=== PATIENT | male | born 1985 | race Caucasian/White ===

== ENCOUNTER 2016-04-07 20:11 | Emergency (ER) | payer OTHER ==
--- NOTE | 2016-04-07 22:00 | ED NURSING NOTES ---
Clinical Report - Nurses [facility] [place] [address] 04/07/2016 20:14 [id number] Triage time 20:Apr 07 2016. --20:18 Mariam Knott Triage time 20:Apr 07 2016. Acuity: LEVEL 3. Chief Complaint: (Dizzy, vision blurry, vomiting). SEPSIS SCREEN: Sepsis Screen: negative. Negative (no infection suspected/documented). MEE COMA SCORE: Mee Coma Scale: 15- eyes open spontaneously (4); best verbal response- oriented x 4 (5); best motor response- obeys commands (6). --20:25 Mariam Knott 20:21 04/07/16. BP: 136/100. HR: 71. RR: 20. O2 saturation: 98% on room air. Temp: 97.7 F (oral). Pain level now: 4/10. --20:25 Mariam Knott. Weight: 94.3 kg stated. Height/Length: 70 inches Per Patient. BMI: 29.8. --20:23 Mariam Knott. Medications None. --20:23 Mariam Knott. Medication/allergy information source: the patient. --20:25 Mariam Knott. Allergies No Known Drug Allergy. --20:23 Mariam Knott. History ( Patient evaluated in [facility], FAST exam negative. Patient has no neurological abnormalities, No facial droop, no slurred speech.). --20:18 Mariam Knott Arrived by private vehicle. Historian: patient. Unaccompanied. Primary physician (none). This started today. ( Patient reports that he was at work when he began to feel dizzy. He states he was driving and felt his head was tingly. He states his left eye is blurry. He reports one episode of vomiting). PAST MEDICAL HX: Hypertension. No history of diabetes mellitus. Immunizations: up-to-date. SOCIAL HX: Never smoker. No alcohol use or drug use. No infectious disease exposure. ABUSE ASSESSMENT: No report of abuse. FALL RISK ASSESSMENT: Fall risk assessment completed. No fall risk identified. NUTRITIONAL RISK ASSESSMENT: The nutritional risk assessment revealed no deficiencies. FUNCTIONAL ASSESSMENT: Functional assessment: no impairments noted. LEARNING NEEDS ASSESSMENT: The learning needs assessment revealed no barriers. SKIN INTEGRITY ASSESSMENT: Skin integrity risk assessment completed. No skin integrity risk identified. --20:25 Mariam Knott. PROBLEMS: Narcotic Withdrawal. --20:24 Mariam Knott. ADDITIONAL SURGERIES: Adenoidectomy. Tonsillectomy. --20:24 Mariam Knott. Interventions ID band on patient. To treatment room. --20:25 Mariam Knott. PHYSICAL ASSESSMENT 20:25 04/07/16. Ambulatory to room. GENERAL / NEURO / PSYCH: Alert. Oriented X 4. Appears in no acute distress. HEENT: No facial asymmetry noted. Mucous membranes are pink. RESPIRATORY: Respirations not labored. SKIN: Skin is warm and dry. --20:25 Mariam Knott. NURSING PROGRESS NOTES Pulse oximeter and NIBP monitor placed on patient; monitor alarms on. Two patient identifiers checked. Call light placed in reach. Side rails up x 1. Bed placed in lowest position. Brakes of bed on. Patient ready for evaluation- chart flagged. --20:26 Mariam Knott Finger stick glucose: 93 mg/dL; performed by [employer]; result shown to the ED physician. --20:26 Mariam Knott ( Patient states he thinks he may have hit his head a few days ago. He states he has some neck pain). --20:38 Mariam Knott Patient ID band checked for patient name and birthdate: patient confirmed. Instructions provided to collect clean catch urine and patient verbalized understanding. Clean catch urine collected with return of yellow-colored clear urine; sample sent to lab for urinalysis and drug screen. Specimen labeled in the presence of the patient. --20:39 Mariam Knott ( Patient reports history of head injury a few months ago on a skateboard. He reports some instances of loss of memory.). --20:39 Mariam Knott 21:25 04/07/2016 Site #1 started via IV in the right antecubital space with an 20g angiocath, with aseptic technique and good blood return; one attempt. Blood drawn: rainbow set. Labeled in the presence of the patient and sent to the lab. Saline lock flushed with 10 mL saline. --21:25 Nikos, Mariam 21:41 04/07/16. BP: 112/67. HR: 60. RR: 20. O2 saturation: 94% on room air. --21:42 Nikos, Mariam. DISPOSITION / DISCHARGE 22:13 04/07/2016 Site #1 removed upon discharge. Catheter intact. Bandaid applied. --22:14 Sage Ram R.N. Departure time: 22:12. Condition at departure: improved. ( Pt is still having a migraine headache, but said it was tolerated.). No learning barriers present. Discharge instructions provided and reviewed with the patient. Reviewed warnings. Reviewed medication(s). Treatments reviewed. Patient verbalized understanding. Written instructions provided in Turkmen. The patient was discharged by the physician. He was discharged home and unaccompanied at time of discharge. He left the Emergency Department ambulatory and via private vehicle. Patient driving. --22:14 Sage Ram R.N. 22:11 04/07/16. BP: 122/69. HR: 66. RR: 14. O2 saturation: 96%. Pain level now 10. --22:14 Sage Ram R.N. Locked/Released at 04/07/2016 22:15 by Sage Ram R.N.
--- NOTE | 2016-04-07 22:00 | ED ORDER SUMMARY ---
..... Patient: AAYUSH SNIDER OrderSheet [facility] VisitID: [id number] [address] [place] [address] 31y, M Registration Date/Time: 04/07/2016 ORDER SHEET Weight: 94.3 kg (stated) Allergies: No Known Drug Allergy GENERAL ORDERS: CBC w Diff Urgent (21:39 04/07/2016 HSoule per protocol) (Ack 21:47 LTapper) CMP Urgent (21:39 04/07/2016 HSoule per protocol) (Ack 21:47 LTapper) UA-Culture if indicated Urgent (21:39 04/07/2016 HSoule per protocol) (Ack 21:47 LTapper) MEDICATION ORDERS: IV FLUIDS: IV Saline Lock (21:25 04/07/2016 HSoule per protocol) (21:25 HSoule) ORDER SHEET NOTES: [Electronically signed by Sage Ram R.N. (22:15 04/07/2016)] [Electronically signed by Yayo Pham MD (04:58 04/08/2016)] [Electronically locked/signed by Sage Ram R.N. (22:15 04/07/2016)]
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
--- NOTE | 2016-04-07 22:00 | ED NURSING NOTES ---
Clinical Report - Nurses [facility] [place] [address] 04/07/2016 20:14 [id number] TRI[facility] Triage time 20:Apr 07 2016. --20:18 Mariam Knott Triage time 20:Apr 07 2016. Acuity: LEVEL 3. Chief Complaint: (Dizzy, vision blurry, vomiting). SEPSIS SCREEN: Sepsis Screen: negative. Negative (no infection suspected/documented). MEE COMA SCORE: Mee Coma Scale: 15- eyes open spontaneously (4); best verbal response- oriented x 4 (5); best motor response- obeys commands (6). --20:25 Mariam Knott 20:21 04/07/16. BP: 136/100. HR: 71. RR: 20. O2 saturation: 98% on room air. Temp: 97.7 F (oral). Pain level now: 4/10. --20:25 Mariam Knott. Weight: 94.3 kg stated. Height/Length: 70 inches Per Patient. BMI: 29.8. --20:23 Mariam Knott. Medications None. --20:23 Mariam Knott. Medication/allergy information source: the patient. --20:25 Mariam Knott. Allergies No Known Drug Allergy. --20:23 Mariam Knott. History ( Patient evaluated in [facility], FAST exam negative. Patient has no neurological abnormalities, No facial droop, no slurred speech.). --20:18 Mariam Knott Arrived by private vehicle. Historian: patient. Unaccompanied. Primary physician (none). This started today. ( Patient reports that he was at work when he began to feel dizzy. He states he was driving and felt his head was tingly. He states his left eye is blurry. He reports one episode of vomiting). PAST MEDICAL HX: Hypertension. No history of diabetes mellitus. Immunizations: up-to-date. SOCIAL HX: Never smoker. No alcohol use or drug use. No infectious disease exposure. ABUSE ASSESSMENT: No report of abuse. FALL RISK ASSESSMENT: Fall risk assessment completed. No fall risk identified. NUTRITIONAL RISK ASSESSMENT: The nutritional risk assessment revealed no deficiencies. FUNCTIONAL ASSESSMENT: Functional assessment: no impairments noted. LEARNING NEEDS ASSESSMENT: The learning needs assessment revealed no barriers. SKIN INTEGRITY ASSESSMENT: Skin integrity risk assessment completed. No skin integrity risk identified. --20:25 Mariam Knott. PROBLEMS: Narcotic Withdrawal. --20:24 Mariam Knott. ADDITIONAL SURGERIES: Adenoidectomy. Tonsillectomy. --20:24 Mariam Knott. Interventions ID band on patient. To treatment room. --20:25 Mariam Knott. PHYSICAL ASSESSMENT 20:25 04/07/16. Ambulatory to room. GENERAL / NEURO / PSYCH: Alert. Oriented X 4. Appears in no acute distress. HEENT: No facial asymmetry noted. Mucous membranes are pink. RESPIRATORY: Respirations not labored. SKIN: Skin is warm and dry. --20:25 Mariam Knott. NURSING PROGRESS NOTES Pulse oximeter and NIBP monitor placed on patient; monitor alarms on. Two patient identifiers checked. Call light placed in reach. Side rails up x 1. Bed placed in lowest position. Brakes of bed on. Patient ready for evaluation- chart flagged. --20:26 Mariam Knott Finger stick glucose: 93 mg/dL; performed by [employer]; result shown to the ED physician. --20:26 Mariam Knott ( Patient states he thinks he may have hit his head a few days ago. He states he has some neck pain). --20:38 Mariam Knott Patient ID band checked for patient name and birthdate: patient confirmed. Instructions provided to collect clean catch urine and patient verbalized understanding. Clean catch urine collected with return of yellow-colored clear urine; sample sent to lab for urinalysis and drug screen. Specimen labeled in the presence of the patient. --20:39 Mariam Knott ( Patient reports history of head injury a few months ago on a skateboard. He reports some instances of loss of memory.). --20:39 Mariam Knott 21:25 04/07/2016 Site #1 started via IV in the right antecubital space with an 20g angiocath, with aseptic technique and good blood return; one attempt. Blood drawn: rainbow set. Labeled in the presence of the patient and sent to the lab. Saline lock flushed with 10 mL saline. --21:25 Nikos, Mariam 21:41 04/07/16. BP: 112/67. HR: 60. RR: 20. O2 saturation: 94% on room air. --21:42 Nikos, Mariam. DISPOSITION / DISCHARGE 22:13 04/07/2016 Site #1 removed upon discharge. Catheter intact. Bandaid applied. --22:14 Sage Ram R.N. Departure time: 22:12. Condition at departure: improved. ( Pt is still having a migraine headache, but said it was tolerated.). No learning barriers present. Discharge instructions provided and reviewed with the patient. Reviewed warnings. Reviewed medication(s). Treatments reviewed. Patient verbalized understanding. Written instructions provided in Uruguayan. The patient was discharged by the physician. He was discharged home and unaccompanied at time of discharge. He left the Emergency Department ambulatory and via private vehicle. Patient driving. --22:14 Sage Ram R.N. 22:11 04/07/16. BP: 122/69. HR: 66. RR: 14. O2 saturation: 96%. Pain level now 10. --22:14 Sage Ram R.N. Locked/Released at 04/07/2016 22:15 by Sage Ram R.N.
--- NOTE | 2016-04-07 22:00 | ED ORDER SUMMARY ---
..... Patient: AAYUSH SNIDER OrderSheet [facility] VisitID: [id number] [address] [place] [address] 31y, M Registration Date/Time: 04/07/2016 ORDER SHEET Weight: 94.3 kg (stated) Allergies: No Known Drug Allergy GENERAL ORDERS: CBC w Diff Urgent (21:39 04/07/2016 HSoule per protocol) (Ack 21:47 LTapper) CMP Urgent (21:39 04/07/2016 HSoule per protocol) (Ack 21:47 LTapper) UA-Culture if indicated Urgent (21:39 04/07/2016 HSoule per protocol) (Ack 21:47 LTapper) MEDICATION ORDERS: IV FLUIDS: IV Saline Lock (21:25 04/07/2016 HSoule per protocol) (21:25 HSoule) ORDER SHEET NOTES: [Electronically signed by Sage Ram R.N. (22:15 04/07/2016)] [Electronically signed by Yayo Pham MD (04:58 04/08/2016)] [Electronically locked/signed by Sage Ram R.N. (22:15 04/07/2016)]
--- NOTE | 2016-04-08 04:59 | ED MED RECONCILIATION SUMMARY ---
Patient: AAYUSH SNIDER Medication Reconciliation Report [facility] VisitID: [id number] [address] [place] [address] 31y, M Registration Date/Time: 04/07/2016 Weight: 94.3 kg Height/Length: 70 in. BMI: 29.8 ALLERGIES: No Known Drug Allergy The patient's Home Medications are listed below: NONE. The source(s) of the original Home Medication information: patient The following Medications were given to the patient in the Emergency Department: None. The following Medications were prescribed to the patient: Meclizine 25 mg: Take 1 tablet orally every 8 hours as needed for dizziness. Dispense thirty (30). No refills. -- Yayo Pham MD
--- NOTE | 2016-04-08 04:59 | ED MAR SUMMARY ---
..... Medication Administration Record [facility] [address] [place], [place] [id number] Patient: AAYUSH SNIDER [place] Visit ID: [id number] 31y, M Weight: 94.3 kg Height/Length: 70 in BMI: 29.8 ALLERGIES: No Known Drug Allergy
--- NOTE | 2016-04-08 04:59 | ED DISCHARGE INSTRUCTIONS ---
Patient: AAYUSH SNIDER General Instructions [facility] VisitID: [id number] [place] [address] 31y, M Registration Date/Time: 04/07/2016 Acute vertigo of unknown cause. INSTRUCTIONS No driving or operating machinery. Drink plenty of fluids. Warnings: Further evaluation is necessary. GENERAL WARNINGS: Return or contact your physician immediately if your condition worsens or changes unexpectedly, if not improving as expected, or if other problems arise. Prescription Medications: Meclizine 25 mg: Take 1 tablet orally every 8 hours as needed for dizziness. Dispense thirty (30). No refills. Understanding of the discharge instructions verbalized by patient. ADDITIONAL INFORMATION Vertigo [Unknown Cause] The "inner ear" is located behind the middle ear. It is part of the balance center of your body. Disease of the inner ear causes vertigo -- a false feeling of motion. It feels as if you or the room is spinning. A vertigo attack may cause sudden nausea, vomiting and heavy sweating. Severe vertigo causes a loss of balance and can cause you to fall. During vertigo, small head movements and changes in body position will often make the symptoms worse. The causes of vertigo include: Inflammation of the inner ear Disease of the nerves to the inner ear Movement of calcium particles in the inner ear Poor blood flow to the balance centers of the brain An episode of vertigo may last seconds, minutes or hours. Once you are over the first episode, it may never return. However, sometimes symptoms may recur off and on over several weeks or longer, depending on the cause. There may be ringing in the ears or hearing loss, which may be temporary or permanent. Home Care: If symptoms are severe, rest quietly in bed. Change positions very slowly. There is usually one position that will feel best, such as lying on one side or lying on your back with your head slightly raised on pillows. Do not drive or work with dangerous machinery for one week after symptoms go away, in case the symptoms suddenly return. Take medicine as prescribed to relieve your symptoms. Unless another medicine was prescribed for nausea, vomiting and vertigo, you may use [id number] motion sickness pills, such as meclizine (Bonine, Bonamine, Antivert) or dimenhydrinate (Dramamine). Follow Up with your doctor or as directed by our staff. Tell the doctor if your ears keep ringing, or if your hearing does not return to normal. Get Prompt Medical Attention if any of the following occur: Vertigo gets worse and is not controlled by medicine prescribed Repeated vomiting not relieved by medicine prescribed Increased weakness or fainting Severe headache or unusually drowsy or confused Weakness of an arm or leg or one side of the face Difficulty with speech or vision Meclizine Hydrochloride Oral tablet What is this medicine? MECLIZINE (MEK cami hoang) is an antihistamine. It is used to prevent nausea, vomiting, or dizziness caused by motion sickness. It is also used to prevent and treat vertigo (extreme dizziness or a feeling that you or your surroundings are tilting or spinning around). How should I use this medicine? Take this medicine by mouth with a glass of water. Follow the directions on the prescription label. If you are using this medicine to prevent motion sickness, take the dose at least 1 hour before travel. If it upsets your stomach, take it with food or milk. Take your doses at regular intervals. Do not take your medicine more often than directed. Talk to your mainstreaming facilitator regarding the use of this medicine in children. Special care may be needed. What side effects may I notice from receiving this medicine? Side effects that you should report to your doctor or health healthcare management as soon as possible: fainting spells fast or irregular heartbeat Side effects that usually do not require medical attention (report to your doctor or health healthcare management if they continue or are bothersome): constipation difficulty passing urine difficulty sleeping headache stomach upset What may interact with this medicine? barbiturate medicines for inducing sleep or treating seizures digoxin medicines for anxiety or sleeping problems, like alprazolam, diazepam or temazepam medicines for hay fever and other allergies medicines for mental depression medicines for movement abnormalities as in Parkinson's disease, or for stomach problems medicines for pain medicines that relax muscles What if I miss a dose? If you miss a dose, take it as soon as you can. If it is almost time for your next dose, take only that dose. Do not take double or extra doses. Where should I keep my medicine? Keep out of the reach of children. Store at room temperature between 15 and 30 degrees C (59 and 86 degrees F). Keep container tightly closed. Throw away any unused medicine after the expiration date. What should I tell my health care provider before I take this medicine? They need to know if you have any of these conditions: asthma glaucoma prostate trouble stomach problems urinary problems an unusual or allergic reaction to meclizine, other medicines, foods, dyes, or preservatives or trying to get breast-feeding What should I watch for while using this medicine? If you are taking this medicine on a regular schedule, visit your doctor or health healthcare management for regular checks on your progress. You may get dizzy, drowsy or have blurred vision. Do not drive, use machinery, or do anything that needs mental alertness until you know how this medicine affects you. Do not stand or sit up quickly, especially if you are an older patient. This reduces the risk of dizzy or fainting spells. Alcohol can increase possible dizziness. Avoid alcoholic drinks. Your mouth may get dry. Chewing sugarless gum or sucking hard candy, and drinking plenty of water may help. Contact your doctor if the problem does not go away or is severe. This medicine may cause dry eyes and blurred vision. If you wear contact lenses you may feel some discomfort. Lubricating drops may help. See your eye doctor if the problem does not go away or is severe. You have been given the following additional information: Vertigo, Unspecified Meclizine Hydrochloride Oral tablet No driving or operating machinery. (Electronically signed by Yayo Pham MD 04/08/2016 4:58)
--- NOTE | 2016-04-08 04:59 | ED MED RECONCILIATION SUMMARY ---
Patient: AAYUSH SNIDER Medication Reconciliation Report Located Within [facility] VisitID: [id number] [address] [place] [address] 31y, M Registration Date/Time: 04/07/2016 Weight: 94.3 kg Height/Length: 70 in. BMI: 29.8 ALLERGIES: No Known Drug Allergy The patient's Home Medications are listed below: NONE. The source(s) of the original Home Medication information: patient The following Medications were given to the patient in the Emergency Department: None. The following Medications were prescribed to the patient: Meclizine 25 mg: Take 1 tablet orally every 8 hours as needed for dizziness. Dispense thirty (30). No refills. -- Yayo Pham MD
--- NOTE | 2016-04-08 04:59 | ED MAR SUMMARY ---
..... Medication Administration Record [facility] [address] [place], [place] [id number] Patient: AAYUSH SNIDER [place] Visit ID: [id number] 31y, M Weight: 94.3 kg Height/Length: 70 in BMI: 29.8 ALLERGIES: No Known Drug Allergy
--- NOTE | 2016-04-08 04:59 | ED DISCHARGE INSTRUCTIONS ---
Patient: AAYUSH SNIDER General Instructions [facility] VisitID: [id number] [place] [address] 31y, M Registration Date/Time: 04/07/2016 Acute vertigo of unknown cause. INSTRUCTIONS No driving or operating machinery. Drink plenty of fluids. Warnings: Further evaluation is necessary. GENERAL WARNINGS: Return or contact your physician immediately if your condition worsens or changes unexpectedly, if not improving as expected, or if other problems arise. Prescription Medications: Meclizine 25 mg: Take 1 tablet orally every 8 hours as needed for dizziness. Dispense thirty (30). No refills. Understanding of the discharge instructions verbalized by patient. ADDITIONAL INFORMATION Vertigo [Unknown Cause] The "inner ear" is located behind the middle ear. It is part of the balance center of your body. Disease of the inner ear causes vertigo -- a false feeling of motion. It feels as if you or the room is spinning. A vertigo attack may cause sudden nausea, vomiting and heavy sweating. Severe vertigo causes a loss of balance and can cause you to fall. During vertigo, small head movements and changes in body position will often make the symptoms worse. The causes of vertigo include: Inflammation of the inner ear Disease of the nerves to the inner ear Movement of calcium particles in the inner ear Poor blood flow to the balance centers of the brain An episode of vertigo may last seconds, minutes or hours. Once you are over the first episode, it may never return. However, sometimes symptoms may recur off and on over several weeks or longer, depending on the cause. There may be ringing in the ears or hearing loss, which may be temporary or permanent. Home Care: If symptoms are severe, rest quietly in bed. Change positions very slowly. There is usually one position that will feel best, such as lying on one side or lying on your back with your head slightly raised on pillows. Do not drive or work with dangerous machinery for one week after symptoms go away, in case the symptoms suddenly return. Take medicine as prescribed to relieve your symptoms. Unless another medicine was prescribed for nausea, vomiting and vertigo, you may use [id number] motion sickness pills, such as meclizine (Bonine, Bonamine, Antivert) or dimenhydrinate (Dramamine). Follow Up with your doctor or as directed by our staff. Tell the doctor if your ears keep ringing, or if your hearing does not return to normal. Get Prompt Medical Attention if any of the following occur: Vertigo gets worse and is not controlled by medicine prescribed Repeated vomiting not relieved by medicine prescribed Increased weakness or fainting Severe headache or unusually drowsy or confused Weakness of an arm or leg or one side of the face Difficulty with speech or vision Meclizine Hydrochloride Oral tablet What is this medicine? MECLIZINE (MEK cami hoang) is an antihistamine. It is used to prevent nausea, vomiting, or dizziness caused by motion sickness. It is also used to prevent and treat vertigo (extreme dizziness or a feeling that you or your surroundings are tilting or spinning around). How should I use this medicine? Take this medicine by mouth with a glass of water. Follow the directions on the prescription label. If you are using this medicine to prevent motion sickness, take the dose at least 1 hour before travel. If it upsets your stomach, take it with food or milk. Take your doses at regular intervals. Do not take your medicine more often than directed. Talk to your water pump installer regarding the use of this medicine in children. Special care may be needed. What side effects may I notice from receiving this medicine? Side effects that you should report to your doctor or health multi care technician as soon as possible: fainting spells fast or irregular heartbeat Side effects that usually do not require medical attention (report to your doctor or health multi care technician if they continue or are bothersome): constipation difficulty passing urine difficulty sleeping headache stomach upset What may interact with this medicine? barbiturate medicines for inducing sleep or treating seizures digoxin medicines for anxiety or sleeping problems, like alprazolam, diazepam or temazepam medicines for hay fever and other allergies medicines for mental depression medicines for movement abnormalities as in Parkinson's disease, or for stomach problems medicines for pain medicines that relax muscles What if I miss a dose? If you miss a dose, take it as soon as you can. If it is almost time for your next dose, take only that dose. Do not take double or extra doses. Where should I keep my medicine? Keep out of the reach of children. Store at room temperature between 15 and 30 degrees C (59 and 86 degrees F). Keep container tightly closed. Throw away any unused medicine after the expiration date. What should I tell my health care provider before I take this medicine? They need to know if you have any of these conditions: asthma glaucoma prostate trouble stomach problems urinary problems an unusual or allergic reaction to meclizine, other medicines, foods, dyes, or preservatives or trying to get breast-feeding What should I watch for while using this medicine? If you are taking this medicine on a regular schedule, visit your doctor or health multi care technician for regular checks on your progress. You may get dizzy, drowsy or have blurred vision. Do not drive, use machinery, or do anything that needs mental alertness until you know how this medicine affects you. Do not stand or sit up quickly, especially if you are an older patient. This reduces the risk of dizzy or fainting spells. Alcohol can increase possible dizziness. Avoid alcoholic drinks. Your mouth may get dry. Chewing sugarless gum or sucking hard candy, and drinking plenty of water may help. Contact your doctor if the problem does not go away or is severe. This medicine may cause dry eyes and blurred vision. If you wear contact lenses you may feel some discomfort. Lubricating drops may help. See your eye doctor if the problem does not go away or is severe. You have been given the following additional information: Vertigo, Unspecified Meclizine Hydrochloride Oral tablet No driving or operating machinery. (Electronically signed by Yayo Pham MD 04/08/2016 4:58)
== END 2016-04-07 22:16 | disposition home or self-care (01) ==
LOC: ED SRH 20:11
DX: R42 Dizziness and giddiness (principal); R11.2 Nausea with vomiting, unspecified
CPT/HCPCS: 90004; 90100; 95059